=== PATIENT | male | born 1990 | race Caucasian/White ===

== ENCOUNTER 2019-01-11 20:10 | Emergency (ER) | payer OTHER ==
--- NOTE | 2019-01-11 21:11 | EDPHY ---
General Time Seen by Provider: 01/11/19 20:24 Narrative: CLINICAL IMPRESSION: Headache, nausea, trouble focusing, intermittent palpitations ASSESSMENT/PLAN: 28-year-old male with past medical history of bipolar disease and alcohol abuse presents to the emergency department complaining of 4 days of a gradual onset, holocranial headache associated with mild nausea, subjective difficulty focusing and some confusion. Patient also reports this evening he was experiencing palpitations and a friend took his heart rate in told him it was between 140 and 170. He arrives with stable vital signs, no tachycardia, chest pain, shortness of breath. He is reporting a mild 2/10 headache. No description of thunderclap headache or worst headache of his life. No clinical signs to suggest meningitis. No recent infection or signs of bacterial URI. CT head shows no evidence of acute intracranial abnormality, mass or bleeding. Labs are reassuring with no evidence of electrolyte imbalance, renal insufficiency, dehydration, or Depakote toxicity. Patient's symptoms improved with IV headache analgesics. He never had an episode of tachycardia in the emergency department. EKG was interpreted by Dr. Abdalla with normal sinus rhythm and no acute ST or T-wave changes identified. I have encouraged patient to follow up with primary care and Cardiology, referrals were given. Discussed his symptoms with psychiatry as his recent Depakote dose change may be contributing. Avoid alcohol. Warning signs return to ED sooner outlined and discharge. DIFFERENTIAL DX: Differential diagnosis for headache includes but not limited to subarachnoid hemorrhage, migraine headache, migraine variant headache, tension headache and infectious causes such as meningitis, pharyngitis and sinusitis. ED PROCEDURES: See lab and/or imaging results below ED COURSE: 10:00 p.m.: CT discussed with Radiology, no acute abnormality identified. EKG and case reviewed with Dr. Abdalla, normal sinus rhythm, no acute ST or T-wave changes. Patient's heart rate in the ED has been in the 90s. No complaints of chest pain or shortness of breath. He is requesting lab check and states he still feels confused as though he cannot focus. 11:15 P.M.: Patient reassessed after IV fluids, headache cocktail, and return of laboratory results. No evidence of leukocytosis, electrolyte imbalance, renal insufficiency, Depakote toxicity, or severe dehydration. Patient is feeling better after IV medication. He remains without focal neurological deficits. He feels comfortable with discharge and outpatient PCP and Cardiology follow-up. CHIEF COMPLAINT: Headache x4 days, confusion, trouble focusing, altered gait HPI: 28-year-old male with past medical history of congenital hearing impairment and bipolar disease treated with Depakote presents to the emergency department with 4 days of a gradual onset holocranial headache. Patient reports he has subjective difficulty focusing in class, keeping concentration tied to lessens, occasional subjective blurry vision, and states he feels dizzy describing this as feeling off balance. He reports when he arises from sitting to standing quickly he feels as though he cannot walk straight. No head trauma or injury. No description of thunderclap headache or worst headache of his life. He has tried smoking marijuana and taking ibuprofen, neither of which have helped. No recent infection, URI symptoms, sore throat, fever or chills, or stiff neck. No history of headaches or migraines. He currently rates his headache as 2/10 and did not take anything other than smoking today. Patient also reports a history of intermittent alcohol abuse. His last drink was 9 days ago. He states the last time he felt pressure in his head was when he had a long period of sobriety. He denies alcohol withdrawal seizures and DTs. His psychiatrist increased his Depakote level approximately 9 days ago to 2250 mg a day. Patient states his Depakote level always runs low. He also reports a history of mild pancreatitis recently but it was unclear if this was due to alcohol or Depakote. He denies abdominal pain nausea and vomiting. He did state this evening he felt a sensation of racing heart, and his friend checked his heart rate reporting at at 140-170. He did not consume any energy drinks or caffeine. No history of SVT or cardiac arrhythmia. He has no coinciding chest pain or shortness of breath. PAST MEDICAL HISTORY: Bipolar, congenital hearing impairment alcohol abuse, depression See nurse/triage notes for additional history if applicable Pertinent Past Surgical History: None reported Family History: Distant relative with SVT Social History: Smokes, drinks alcohol REVIEW OF SYSTEMS: All other systems negative Constitutional: No fever, no chills, appetite change. Eyes: No discharge, vision change, subjective trouble focusing ENT: No sore throat, congestion, ear pain, hearing impaired Cardiovascular: No chest pain, + for palpitations. Respiratory: No cough, no shortness of breath. Gastrointestinal: No abdominal pain, no vomiting, diarrhea. Genitourinary: No hematuria, dysuria, flank pain, pelvic pain Musculoskeletal: No back pain, joint swelling, joint pain, myalgias. Skin: No rashes, color change. Neurological: positive for headache, positive for dizziness, subjective confusion, weakness. PHYSICAL EXAM: General Appearance: Alert, oriented, appropriate, cooperative, NAD, well hydrated, non-toxic appearing, hypertensive no hypoxia. HEENT: TMs are clear bilaterally no perforation or FB, no injection, no evidence of serous or mucopurulent otitis. Hearing aids to both ears, Oropharynx clear is no erythema or exudates, no tonsillar hypertrophy or asymmetry. Dentition without abnormality. Eyes: PERRLA, no acute vision change, nystagmus, swelling, discharge, pain or photosensitivity. Conjunctiva pink, no pallor or injection Neck: Supple, nontender, no lymphadenopathy, no midline pain, FROM, no meningismus. Respiratory: There are no retractions, lungs are clear to auscultation. Cardiac: Regular rate and rhythm, no murmurs or gallops. Gastrointestinal: Abdomen is soft, nontender, bowel sounds normal, no masses/ hernia, no rigidity, guarding or focal peritoneal findings. Neurological: Alert and oriented x 3, CN 2-12 grossly intact, normal gait no ataxia, DTR's intact, normal sensation and strength, no focal neurological deficits Skin: Warm, dry, no rashes, no nodules on palpation. Musculoskeletal: Extremities are symmetrical, full range of motion, no tenderness, deformity, swelling, or erythema. Psychiatric: Patient is oriented X 3, there is no agitation. No hallucinations or delusions MEDICAL DECISION MAKING: Patient was seen independently. Secondary supervising physician at time of evaluation was Dr. Abdalla. Diagnosis: Holocranial headache, subjective confusion and trouble focusing, palpitations. New, requires workup Summary: See Assessment and Plan for summary of ED visit Clinical lab tests: ordered / reviewed. Independent visualization of images, tracing, or specimens: Yes. Decision to obtain medical records or history from someone other than the patient: No Review / Summarize previous medical records: None available Discussed patient with another provider: Radiology, Dr. Abdalla Patient Progress: improved, stable for discharge. - Diagnostics Imaging Results: Imaging Impressions Head CT 01/11/19 20:52 Impression: Normal noncontrast CT of the brain. Results called to Zion Apple PA-C, at 9:40 PM at the time of the interpretation. - History Smoking Status: Current some day smoker - Objective Vital Signs: Initial Vital Signs Temperature (C) 37.3 C 01/11/19 20:10 Heart Rate 99 01/11/19 20:10 Respiratory Rate 18 01/11/19 20:10 Blood Pressure 156/100 H 01/11/19 20:10 O2 Sat (%) 95 01/11/19 20:10 O2 Delivery Mode Room Air Allergies/Adverse Reactions: No Known Allergies Allergy (Unverified 01/11/19 20:10) Home Medications: Medication Instructions Recorded Depakote 01/11/19 Laboratory Results: Laboratory Results 01/11/19 22:35 01/11/19 22:35 01/11/19 01/11/19 22:35 22:35 WBC 8.30 10^3/uL 10^3/uL (3.80-9.50) RBC 4.95 10^6/uL 10^6/uL (4.40-6.38) Hgb 16.0 g/dL g/dL (13.7-17.5) Hct 45.1 % % (40.0-51.0) MCV 91.1 fL fL (81.5-99.8) MCH 32.3 pg pg (27.9-34.1) MCHC 35.5 g/dL g/dL (32.4-36.7) RDW 12.7 % % (11.5-15.2) Plt Count 227 10^3/uL 10^3/uL (150-400) MPV 9.7 fL fL (8.7-11.7) Neut % (Auto) 48.1 % % (39.3-74.2) Lymph % (Auto) 38.8 % % (15.0-45.0) Smyth % (Auto) 7.5 % % (4.5-13.0) Eos % (Auto) 4.6 % % (0.6-7.6) Baso % (Auto) 0.6 % % (0.3-1.7) Nucleat RBC Rel Count 0.0 % % (0.0-0.2) Absolute Neuts (auto) 4.00 10^3/uL 10^3/uL (1.70-6.50) Absolute Lymphs (auto) 3.22 10^3/uL H 10^3/uL (1.00-3.00) Absolute Monos (auto) 0.62 10^3/uL 10^3/uL (0.30-0.80) Absolute Eos (auto) 0.38 10^3/uL 10^3/uL (0.03-0.40) Absolute Basos (auto) 0.05 10^3/uL 10^3/uL (0.02-0.10) Absolute Nucleated RBC 0.00 10^3/uL 10^3/uL (0-0.01) Immature Gran % 0.4 % % (0.0-1.1) Immature Gran # 0.03 10^3/uL 10^3/uL (0.00-0.10) Sodium 141 mEq/L mEq/L (135-145) Potassium 4.7 mEq/L mEq/L (3.5-5.2) Chloride 108 mEq/L mEq/L (97-110) Carbon Dioxide 22 mEq/l mEq/l (22-31) Anion Gap 11 mEq/L mEq/L (6-14) BUN 15 mg/dL mg/dL (7-23) Creatinine 0.7 mg/dL mg/dL (0.7-1.3) Estimated GFR > 60 Glucose 101 mg/dL H mg/dL (70-100) Calcium 9.8 mg/dL mg/dL (8.5-10.4) Lipase 147 IU/L IU/L (23-300) Valproic Acid 64.7 mcg/mL mcg/mL (50.0-150.0) Medications Given: Discontinued Medications Dexamethasone (Decadron Injection) 10 mg IVP EDNOW ONE Stop: 01/11/19 22:10 Last Admin: 01/11/19 22:34 Dose: 10 mg Diphenhydramine HCl (Benadryl Injection) 25 mg IVP EDNOW ONE Stop: 01/11/19 22:10 Last Admin: 01/11/19 22:33 Dose: 25 mg Sodium Chloride (Ns) 1,000 mls @ 0 mls/hr IV ONCE ONE; Wide Open PRN Reason: Protocol Stop: 01/11/19 22:10 Last Admin: 01/11/19 22:32 Dose: 1,000 mls Ketorolac Tromethamine (Toradol) 15 mg IVP EDNOW ONE Stop: 01/11/19 22:10 Last Admin: 01/11/19 22:34 Dose: 15 mg Metoclopramide HCl (Reglan Injection) 5 mg IVP EDNOW ONE Stop: 01/11/19 22:10 Last Admin: 01/11/19 22:34 Dose: 5 mg Departure - Departure Disposition: Home, Routine, Self-Care Clinical Impression: Problem focusing eyes, Palpitations Headache Qualifiers: Headache chronicity pattern: unspecified pattern Intractability: not intractable Condition: Fair Instructions: Heart Palpitations (ED), Acute Headache (ED) Additional Instructions: DISCHARGE INSTRUCTIONS FROM YOUR DOCTOR Thank you for visiting our emergency department today. You were treated by a physician nurse's assistant today and your case was reviewed with our ED Attending physician. Please keep in mind that discharge from the emergency department does not mean that there is nothing wrong - it simply means that we have not identified an emergency condition that requires further evaluation or treatment in the hospital. You should always plan to follow up with primary care for re- evaluation of your condition in the next 2-3 days. If you have been referred to a specialist, please call as soon as possible (today or tomorrow) to schedule your follow up appointment at the appropriate time. DIAGNOSTIC EVALUATION IN THE EMERGENCY DEPARTMENT TONIGHT INCLUDED CT SCAN OF THE HEAD WHICH WAS READ BY THE RADIOLOGIST WITH NO ABNORMAL FINDINGS, LAB WORK AND EKG. YOUR LABS ARE REASSURING, NO ELECTROLYTE IMBALANCE, NORMAL BLOOD COUNTS, NORMAL PANCREATIC ENZYMES AND A VALPROIC ACID LEVEL OF 64. WE RECOMMEND YOU FOLLOWUP WITH YOUR PRIMARY CARE DOCTOR AND CARDIOLOGY TO DISCUSS A POSSIBLE HOLTER MONITOR FOR INTERMITTENT PALPITATIONS. YOU RECEIVED IV MEDICATIONS FOR YOUR HEADACHE TONIGHT WITH IMPROVEMENT IN YOUR SYMPTOMS. WE RECOMMEND DISCUSSING YOUR SYMPTOMS WITH YOUR PRIMARY PSYCHIATRIST THEY MAY BE DUE TO DEPAKOTE DOSING. PLEASE RETURN TO THE EMERGENCY DEPARTMENT IMMEDIATELY FOR WORSENING OR SEVERE HEADACHE, ALTERED MENTAL STATUS, SEIZURES, VOMITING, VERTIGO, OR ANY OTHER CONCERNS. People present with illnesses and injuries in different ways, and it is always possible that we have missed something. You may always return for re-evaluation if symptoms worsen or if they are not improving or if you develop new/different symptoms. Again, thank you for choosing our emergency department. We hope that you feel better. Referrals: NONE *PRIMARY CARE P,. [Primary Care Provider] - As per Instructions [facility],. [Clinic] - 1-2 days without fail Narda Weston MD [Medical Doctor] - 2-3 days, call for appt.
--- NOTE | 2019-01-11 21:29 | CPEKG ---
Test Reason : OPEN Blood Pressure : / mmHG Vent. Rate : 081 BPM Atrial Rate : 081 BPM P-R Int : 135 ms QRS Dur : 090 ms QT Int : 344 ms P-R-T Axes : 060 066 027 degrees QTc Int : 400 ms Sinus rhythm Probable left atrial enlargement Confirmed by Dominick Abdalla ([id number]) on 01/11/2019 9:29:26 PM Referred By: Dominick Abdalla Confirmed By:Dominick Abdalla
[2019-01-11] MEDS ORDERED: METOCLOPRAMIDE 10 MG/2 ML VIAL IVP ONE (22:09)
[2019-01-11] MEDS ORDERED: DEXAMETHASONE 10 MG/ML VIAL IVP ONE (22:09)
[2019-01-11] MEDS ORDERED: KETOROLAC 30 MG/1 ML SDV IVP ONE (22:09)
[2019-01-11] MEDS ORDERED: NS 1,000 ML IV ONE (22:09)
[2019-01-11 22:52] LABS: PLATELET COUNT 227 10^3/uL (150-400)
[2019-01-11 23:35] VITALS: BP 129/83
== END 2019-01-11 23:35 | disposition home or self-care (01) ==
DX: R51 Headache (principal); R00.2 Palpitations; R41.0 Disorientation, unspecified; F31.9 Bipolar disorder, unspecified; Z79.899 Other long term (current) drug therapy
CPT/HCPCS: 96374; J1100; J1200; J1885; J2765